=== PATIENT | female | born 1975 | race Caucasian/White ===

== ENCOUNTER 2018-07-04 08:35 | Outpatient (CLI) | payer BC | END 2018-07-04 08:36 | disposition home or self-care (01) | LOC: BICMAMMO 08:35 | PROVIDERS: ATTEND Family Medicine | DX: R92.8 Other abnormal and inconclusive findings on diagnostic imaging of breast (principal); Z80.3 Family history of malignant neoplasm of breast | CPT/HCPCS: 77066; G0279 ==

== ENCOUNTER 2019-06-13 13:05 | Outpatient (CLI) | payer BC ==
--- NOTE | 2019-06-13 13:59 | RAD ---
LUMBAR SPINE TWO VIEWS: HISTORY: Low back pain for 10 years, greater over the past 10 years. Right leg radiculopathy and foot pain. COMPARISON: None. FINDINGS: There are five [id number] lumbar type vertebral bodies. The vertebral body heights are within no rmal limits. No fracture is visualized. There is trace anterolisthesis of L4 on L5. Facet degenerativ e changes are seen in the lower lumbar spine. No other findings. IMPRESSION: Suggestion of trace anterolisthesis of L4 on L5. No fracture is seen. POS: OFF
--- NOTE | 2019-06-13 14:00 | RAD ---
CERVICAL SPINE THREE VIEWS: 06/13/2019 HISTORY: Headaches and arthritis/neck pain for 10 years. COMPARISON: None. FINDINGS: There is disk space narrowing with degenerative endplate change and anterior osteophyte formation at C5-C6 and C6-C7. There is mild anterolisthesis at C4-C5, measuring approximately 2 mm. No prevertebra l soft tissue swelling. Open mouth odontoid view demonstrates a normal appearing dens and C1-2 articu lation. Frontal imaging demonstrates significant mid cervical spine facet and uncovertebral osteophyt e formation, right greater than left, most prominent at C4-C5 and C5-C6. IMPRESSION: Multilevel cervical spine degenerative change. POS: LYNDSEY
== END 2019-06-13 13:06 | disposition home or self-care (01) ==
LOC: BICRAD 13:05
PROVIDERS: ATTEND Orthopaedic Surgery
DX: M54.5 Low back pain (principal); M54.2 Cervicalgia; M47.812 Spondylosis without myelopathy or radiculopathy, cervical region
CPT/HCPCS: 72040; 72100

== ENCOUNTER 2019-10-14 08:48 | Outpatient (CLI) | payer BC ==
--- NOTE | 2019-10-14 09:10 | ULT ---
Sonogram right upper quadrant HISTORY: Right upper quadrant pain. FINDINGS: Gallbladder has normal appearance. No stones visible. Common duct is 0.5 cm. Liver mildly echogenic without focal mass or intrahepatic biliary dilatation. No free fluid. IMPRESSION : No evidence of gallstones or biliary obstruction. Mild hepato-steatosis.
== END 2019-10-14 08:49 | disposition home or self-care (01) ==
LOC: BICULT 08:48
PROVIDERS: ATTEND Family Medicine
DX: R10.11 Right upper quadrant pain (principal); K76.0 Fatty (change of) liver, not elsewhere classified
CPT/HCPCS: 76705

== ENCOUNTER 2019-11-01 08:12 | Outpatient (CLI) | payer BC ==
--- NOTE | 2019-11-01 12:31 | NM ---
Radionucleotide hepatobiliary scan and gallbladder ejection fraction. HISTORY: Right upper quadrant pain. FINDINGS: Early images show physiologic uptake of radiotracer throughout the hepatic parenchyma. Gall bladder is visible immediately. Small bowel at 9 minutes. After administration of fatty meal, there is excretion of contrast from the gallbladder to the small bowel. Gallbladder ejection fraction calculated at 42%. IMPRESSION : Biliary system is patent. Technically, gallbladder ejection fraction is in the indeterminate range. Subjective evaluation and e martine gallbladder visualization, however, argue against significant gallbladder dyskinesis.
== END 2019-11-01 08:13 | disposition home or self-care (01) ==
LOC: NM 08:12
PROVIDERS: ATTEND Family Medicine
DX: R10.11 Right upper quadrant pain (principal)
CPT/HCPCS: 78227; A9537

== ENCOUNTER 2020-06-04 08:39 | Inpatient (IN) | payer BC ==
[2020-06-04] MEDS ORDERED: Acetaminophen 500 MG TAB ONE (08:58)
[2020-06-04] MEDS ORDERED: Dexamethasone 10 MG/ML VIAL ONE (09:06)
[2020-06-04 09:19] LABS: White Blood Cell (WBC) Count 5.1 thou/uL (4.8-10.8)
[2020-06-04 09:39] LABS: Band 29 % (5-11); Hemoglobin 12.2 g/dL (12.0-16.0); Lymphocytes 9 % (21-51); MDiff Complete? YES; Mean Corpuscular HGB CONC 35.2 g/dL (32.0-36.0); Mean Corpuscular Hemoglobin 31.6 pg (27.0-31.0); Mean Corpuscular Volume 89.9 fL (78.0-98.0); Mean Platelet Volume 6.9 fL (7.4-10.4); Metamyelocyte 4 % (0-0); Monocytes 5 % (0-10); Neutrophil 53 % (42-75); Platelet Count 180 thou/uL (130-400); RBC Distribution Width 11.4 % (11.5-14.5); RBC Morphology Normal; Red Blood Cell (RBC) Count 3.85 mill/uL (4.20-5.40)
[2020-06-04 09:43] LABS: ALT (SGPT) 17 U/L (8-55); AST (SGOT) 24 U/L (5-34); Albumin 4.6 g/dL (3.5-5.0); Alkaline Phosphatase 60 U/L (40-110); Anion Gap 18 mmol/L (10-20); BUN (Urea Nitrogen) 6 mg/dL (7.0-18.7); Bilirubin, Total 0.8 mg/dL (0.2-1.2); CK (CPK) 190 U/L (29-168); Calc. Creatinine Clearance 0 mL/min (70-130); Calcium 9.7 mg/dL (7.8-10.44); Carbon Dioxide 24 mmol/L (22-29); Chloride 87 mmol/L (98-107); Estimated GFR-MDRD 75; Globulin 3.1 g/dL (2.4-3.5); Glucose 98 mg/dL (70-105); Lipase 19 U/L (8-78); Potassium 3.3 mmol/L (3.5-5.1); Protein, Total 7.7 g/dL (6.0-8.3); Sodium 126 mmol/L (136-145)
[2020-06-04] MEDS ORDERED: Azithromycin 500 MG VIAL ONE (09:53)
--- NOTE | 2020-06-04 10:21 | RAD ---
PORTABLE CHEST 1 VIEW: DATE: 06/04/2020. TIME: 9:18 AM. HISTORY: Cough, shortness of breath, fever, chills, nausea, headache. FINDINGS: The heart size is normal. There are patchy opacities in the left mid and lower lung zones. NO pneum othoraces or pleural effusions are seen. IMPRESSION: Findings suspicious for pneumonia. POS: JYOTHIA
[2020-06-04 10:38] LABS: Bilirubin Negative (Negative); Blood, Urine Negative (Negative); Clarity Clear (Clear); Glucose, Urine (Dipstick) Normal (Negative); Ketone, Urine Negative (Negative); Leukocyte Negative Leu/uL (Negative); Nitrite Negative (Negative); Protein, Urine (Dipstick) Negative (Neg-Trace); Specific Gravity, Urine 1.015 (1.002-1.036); Urobilinogen Normal mg/dL (Less than 2); pH, Urine 6.5 (5.0-9.0)
--- NOTE | 2020-06-04 10:53 | CT ---
CT PULMONARY ANGIOGRAM WITH IV CONTRAST AND 3D POST PROCESSING: HISTORY: Cough, shortness of breath, fever, chills, nausea, headache. FINDINGS: There is good contrast opacification with pulmonary arterial vasculature without filling defects to s uggest pulmonary embolism. The thoracic aorta is well opacified without aneurysm or dissection. No pleural or pericardial effusions are seen. Patchy multifocal opacities are seen bilaterally, most pr ominent in the left upper lobe. A small hiatal hernia is present. There are degenerative changes in the spine. Upper abdominal tomograms demonstrate calcified granulomas in the spleen. IMPRESSION: 1. No CT evidence of pulmonary embolism. 2. Multifocal pneumonia suspicious for COVID-19. POS: JYOTHIA
[2020-06-04] MEDS ORDERED: Iopamidol-370 76% 500 ML 1 ML ONE (11:33)
[2020-06-04] MEDS ORDERED: Enoxaparin Sodium 100 MG/ML SYRINGE ONE (11:47)
[2020-06-04 12:20] LABS: Magnesium 1.4 mg/dL (1.6-2.6); Phosphorus 2.6 mg/dL (2.3-4.7)
[2020-06-04 12:22] LABS: SARS-CoV-2 NAA Rapid Test Not Detected (NotDetected)
[2020-06-04 13:30] LABS: Troponin I Less than 0.010 ng/mL (< 0.028)
[2020-06-04] MEDS ORDERED: Magnesium Sulfate 4 GM in Sodium Chloride 0.9% 250 ML 250 ML IVPB SCH (13:30)
--- NOTE | 2020-06-04 13:51 | PDOC.HHP ---
Hospitalist HPI - History of Present Illness Shortness of breath with generalized weakness History of Present Illness: Patient is 45-year-old female with hypertension, obesity and chronic alcohol use presented to the emergency room with generalized weakness along with shortness of breath and fever of 2 to 3 days duration. 2 weeks ago patient had transient flulike symptoms that was self-limited. Over the last 2 to 3 days patient developed gradual worsening fever along with chills, shortness of breath and generalized weakness. She did not record her temperature. She also had intermittent chills She was short of breath on minimal exertion. She does not have a pulse oximeter at home. She had intr actable cough without significant production. She also had mild generalized headache without any photophobia, phonophobia or focal deficit. In the emergency room her initial vital signs showed temperature 103, respiration of 22, pulse rate of 128 with a blood pressure of 118/73. O2 saturation was 96% on room air. CT scan of the chest was negative for pulmonary embolism. It showed multifocal pneumonia suspicious for COVID-19. She received Levaquin, azithromycin, Decadron and 1 mg/kg of Lovenox in the emergency room PAST MEDICAL HISTORY: Hypothyroidism, bipolar disorder, anxiety, irritable bowel syndrome, hypertension, obesity PAST SURGICAL HISTORY: Sinus surgery in 1994, hysterectomy in 2008, hernia repair in 2010, colonoscopy in 2007, perinealplasty in 2000 ALLERGIES: Latex, penicillin, codeine SOCIAL HISTORY: Denies any smoking. Lives close to her family. Drinks 6 cans 16 oz beer at night FAMILY HISTORY: Hypertension and heart disease in the father. Mother with breast cancer. Hospitalist ROS - Review of Systems Cardiovascular: denies: chest pain, palpitations, orthopnea, paroxysmal noc. dyspnea, edema, light headedness, other Gastrointestinal: denies: nausea, vomiting, abdominal pain, diarrhea, constipation, melena, hematochezia, other All other systems reviewed; all pertinent +/- noted in HPI/Subj - Medication Medications: To be verified Medications: Taking Olmesartan Medoxomil 20 mg Tablet 1 tablet Orally Once a day, Taking Levothyroxine Sodium 112 MCG Capsule 1 tablet on an empty stomach in the morning Orally Once a day, Taking Depakote ER(Divalproex Sodium ER) 250 MG Unspecified 2 tablet ORALLY EVERY 12 HOURS, Taking Metoprolol- Hydrochlorothiazide 50-25 MG Tablet 2 TABLETS WITH A MEAL ONCE A DAY ORALLY 30 Orally Once a day, Unknown Sertraline HCl 50MG Tablet 3 TABS orally qd, Unknown Vitamin D3 5000 IU tablet 2 tabs orally once a day, Unknown Magnesium 400mg 1 tablet bid, Unknown Multi +DHA 27-0.8-228 MG Capsule Orally , Unknown Vitamin C 2000 as directed daily, Unknown Calcium 500 mg 1 tab tid, Unknown HydrOXYzine HCl 25 MG Tablet 1 TABLET NEEDED TID PRN ITCHING ORALLY 30 DAY(S) Orally every 8 hrs, Notes: prn for anxiety, Unknown Diltiazem HCl ER 180 MG Capsule Extended Release 24 Hour 1 capsule on an empty stomach in the morning Orally twice a day, Unknown Quetiapine Fumarate 200 MG Tablet TAKE 1 TABLET BY MOUTH EVERY NIGHT AT BEDTIME , Unknown Azelastine HCl 0.1 % Solution 1 PUFF IN EACH NOSTRIL TWICE A DAY NASALLY 1 MONTH , Medication List reviewed and reconciled with the patient - Exam General Appearance: ill appearing Eye: PERRL, anicteric sclera ENT: normocephalic atraumatic, no oropharyngeal lesions Neck: supple, no JVD, no thyromegaly, no lymphadenopathy Heart: RRR, no gallops, no rubs, normal peripheral pulses Respiratory: no wheezes, rales, rhonchi, tachypneic Gastrointestinal: soft, normal bowel sounds, no guarding, no rigidity Extremities: no cyanosis, no clubbing, no edema Skin: normal turgor Neurological: normal sensation to touch, no focal deficits Musculoskeletal: normal tone, generalized weakness Psychiatric: normal affect, A&O x 3 Hospitalist Results - Labs Result Diagrams: 06/05/20 05:39 06/05/20 05:39 Lab results: WBC 5.1 thou/uL (4.8-10.8) 06/04/20 09:10 Hgb 12.2 g/dL (12.0-16.0) 06/04/20 09:10 Hct 34.6 % (36.0-47.0) L 06/04/20 09:10 MCV 89.9 fL (78.0-98.0) 06/04/20 09:10 Plt Count 180 thou/uL (130-400) 06/04/20 09:10 Band Neuts % (Manual) 29 % (5-11) H 06/04/20 09:10 Sodium 126 mmol/L (136-145) L 06/04/20 09:10 Potassium 3.3 mmol/L (3.5-5.1) L 06/04/20 09:10 Chloride 87 mmol/L (98-107) L 06/04/20 09:10 Carbon Dioxide 24 mmol/L (22-29) 06/04/20 09:10 BUN 6 mg/dL (7.0-18.7) L 06/04/20 09:10 Creatinine 0.82 mg/dL (0.6-1.1) 06/04/20 09:10 Glucose 98 mg/dL (70-105) 06/04/20 09:10 Calcium 9.7 mg/dL (7.8-10.44) 06/04/20 09:10 Total Bilirubin 0.8 mg/dL (0.2-1.2) 06/04/20 09:10 AST 24 U/L (5-34) 06/04/20 09:10 ALT 17 U/L (8-55) 06/04/20 09:10 Alkaline Phosphatase 60 U/L (40-110) 06/04/20 09:10 Creatine Kinase 190 U/L (29-168) H 06/04/20 09:10 Troponin I Less than 0.010 ng/mL (< 0.028) 06/04/20 12:37 C-Reactive Protein 2.94 mg/dL (= or < 0.5) H 06/04/20 09:10 B-Natriuretic Peptide 36.2 pg/mL (0-100) 06/04/20 09:10 Serum Total Protein 7.7 g/dL (6.0-8.3) 06/04/20 09:10 Albumin 4.6 g/dL (3.5-5.0) 06/04/20 09:10 Lipase 19 U/L (8-78) 06/04/20 09:10 Urine Ketones Negative mg/dL (Negative) 06/04/20 10:22 Urine Blood Negative (Negative) 06/04/20 10:22 Urine Nitrite Negative (Negative) 06/04/20 10:22 Ur Leukocyte Esterase Negative Karla/uL (Negative) 06/04/20 10:22 Abnormal Lab Results - Last 48 hrs 06/04/20 09:10: Sodium 126 L, Potassium 3.3 L, Chloride 87 L, BUN 6 L, Creatine Kinase 190 H 06/04/20 09:10: RBC 3.85 L, Hct 34.6 L, MCH 31.6 H, RDW 11.4 L, MPV 6.9 L, Band Neuts % (Manual) 29 H, Lymphocytes % (Manual) 9 L, Metamyelocytes % (Man) 4 H 06/04/20 09:10: D-Dimer Less than 0.27 L 06/04/20 09:10: Serum Osmolality 262 L 06/04/20 09:10: Magnesium 1.4 L 06/04/20 09:10: C-Reactive Protein 2.94 H - EKG Interpretation EKG: sinus rhythm with nonspecific ST-T wave changes-reviewed by me - Radiology Interpretation CT scan - chest Status: image reviewed by me Additional Comment: FINDINGS: There is good contrast opacification with pulmonary arterial vasculature without filling defects to s uggest pulmonary embolism. The thoracic aorta is well opacified without aneurysm or dissection. No pleural or pericardial effusions are seen. Patchy multifocal opacities are seen bilaterally, most pr ominent in the left upper lobe. A small hiatal hernia is present. There are degenerative changes in the spine. Upper abdominal tomograms demonstrate calcified granulomas in the spleen. IMPRESSION: 1. No CT evidence of pulmonary embolism. 2. Multifocal pneumonia suspicious for COVID-19. Hospitalist H&P A/P - Plan Plan: Acute hypoxic respiratory failure due to suspected COVID-19 pneumonia. Bacterial pneumonia is a possibility. Hypertension Hypothyroidism Abnormal EKG Hypotonic hyponatremia Hypokalemia Hypomagnesemia Chronic alcoholism Obesity with a BMI 36 Suspected obstructive sleep apnea Anxiety/bipolar disorder Plan: Patient is currently admitted to medical floor. Rapid COVID-19 test came back negative. Will recheck COVID-19 testing. Patient received Decadron in the emergency room. COVID-19 isolation. Albuterol inhaler every 4 hours as needed. Add mucolytic's. Empiric Levaquin. Replace electrolytes. Counseled on alcohol cessation. Alcohol withdrawal protocol. Gentle hydration for hyponatremia. Recheck labs in a.m. Check respiratory viral panel. Resume home medications once verified. Recheck inflammatory markers in a.m. Echocardiogram and stress test as outpatient due to active Covid infection.
[2020-06-04] MEDS ORDERED: Lorazepam 0.5 MG TAB PO PRN (14:03)
[2020-06-04] MEDS ORDERED: Ondansetron ODT 4 MG TAB PO PRN (14:04)
[2020-06-04] MEDS ORDERED: Acetaminophen 325 MG TAB PO PRN (14:04)
[2020-06-04] MEDS ORDERED: guaiFENesin ER 600 MG TAB PO PRN (14:04)
[2020-06-04] MEDS ORDERED: Bisacodyl 10 MG SUPP PR PRN (14:04)
[2020-06-04] MEDS ORDERED: Calcium Carbonate 500 MG ChewTAB PO PRN (14:04)
[2020-06-04] MEDS ORDERED: Ondansetron PF 4 MG/2 ML Vial IVP PRN (14:04)
[2020-06-04] MEDS ORDERED: Senokot S 8.6-50 MG TAB PO PRN (14:04)
[2020-06-04] MEDS ORDERED: Albuterol 200 PUFF (6.7GM INHALER) INH PRN (14:11)
[2020-06-04 14:22] VITALS: BMI 35.9
[2020-06-04] MEDS: NS 0.9% w/ 20 MEQ KCL 1,000 ML/1,000 ML BAG IV SCH (19:00)
[2020-06-04] MEDS: Albuterol 200 PUFF (6.7GM INHALER) INH SCH ×3 (19:25→20:54)
[2020-06-04 20:10] LABS: SARS-CoV-2 MS2 Positive; SARS-CoV-2 N Gene Negative; SARS-CoV-2 S Gene Negative; SARS-CoV-2 by NAA Not Detected (NotDetected); SARS-CoV-2 orf1ab Negative
[2020-06-04] MEDS: Zinc Sulfate 220 MG CAP PO SCH (20:54)
[2020-06-04] MEDS: Famotidine 20 MG TAB PO SCH (20:54)
[2020-06-04] MEDS: Potassium Chloride 20 MEQ TAB PO SCH (20:54)
[2020-06-04] MEDS: BEER 1 CAN PO SCH (21:00)
[2020-06-04] MEDS ORDERED: Enoxaparin Sodium 40 MG/0.4 ML SYRINGE SC SCH (21:00)
[2020-06-05] MEDS: Albuterol 200 PUFF (6.7GM INHALER) INH SCH ×6 (04:35→23:26)
[2020-06-05 06:29] LABS: #Lymphocytes 0.5 thou/uL (1.20-3.40); #Monocytes 0.7 thou/uL (0.11-0.59); #Neutrophils 11.5 thou/uL (1.40-6.50); %Eosinophils 0.1 % (0.0-10.0); %Monocytes 5.6 % (0.0-10.0); %Neutrophils 90.3 % (42.0-75.0); Mean Corpuscular HGB CONC 33.6 g/dL (32.0-36.0); Mean Corpuscular Hemoglobin 31.3 pg (27.0-31.0); Mean Corpuscular Volume 93.3 fL (78.0-98.0); Mean Platelet Volume 7.3 fL (7.4-10.4); Platelet Count 199 thou/uL (130-400); RBC Distribution Width 11.6 % (11.5-14.5); White Blood Cell (WBC) Count 12.7 thou/uL (4.8-10.8)
[2020-06-05 06:36] LABS: ALT (SGPT) 12 U/L (8-55); AST (SGOT) 18 U/L (5-34); Albumin 4.1 g/dL (3.5-5.0); Alkaline Phosphatase 41 U/L (40-110); Anion Gap 14 mmol/L (10-20); BUN (Urea Nitrogen) 8 mg/dL (7.0-18.7); Bilirubin, Total 0.5 mg/dL (0.2-1.2); Calc. Creatinine Clearance 143 mL/min (70-130); Calcium 8.8 mg/dL (7.8-10.44); Carbon Dioxide 26 mmol/L (22-29); Chloride 92 mmol/L (98-107); Estimated GFR-MDRD 84; Globulin 2.6 g/dL (2.4-3.5); Glucose 130 mg/dL (70-105); Magnesium 2.5 mg/dL (1.6-2.6); Potassium 3.5 mmol/L (3.5-5.1); Protein, Total 6.7 g/dL (6.0-8.3); Sodium 128 mmol/L (136-145)
[2020-06-05] MEDS ORDERED: Enoxaparin Sodium 40 MG/0.4 ML SYRINGE SC SCH (09:00)
[2020-06-05] MEDS ORDERED: Diabetic Tussin 200 MG/10 ML UDCUP PO PRN (09:20)
[2020-06-05] MEDS ORDERED: Metoprolol Tartrate 25 MG TAB PO SCH (09:30)
[2020-06-05] MEDS ORDERED: Hydrochlorothiazide 25 MG TAB PO SCH (09:30)
[2020-06-05] MEDS: Ascorbic Acid 500 mg Chewable Tablet PO SCH (09:35)
[2020-06-05] MEDS: Potassium Chloride 20 MEQ TAB PO SCH (09:36)
[2020-06-05] MEDS: Saccharomyces boulardii 250 MG CAP PO SCH (09:36)
[2020-06-05] MEDS: Folic Acid 1 MG TAB PO SCH (09:36)
[2020-06-05] MEDS: Cyanocobalamin (Vitamin B-12) 1,000 MCG TAB PO SCH (09:37)
[2020-06-05] MEDS: Famotidine 20 MG TAB PO SCH ×2 (09:37→21:12)
[2020-06-05] MEDS: Multivit, Therapeutic 1 TAB PO SCH (09:37)
[2020-06-05] MEDS: Thiamine 100 MG TAB PO SCH (09:38)
[2020-06-05] MEDS: NS 0.9% w/ 20 MEQ KCL 1,000 ML/1,000 ML BAG IV SCH ×2 (09:39→19:16)
--- NOTE | 2020-06-05 16:07 | CON ---
DATE OF CONSULTATION: 06/05/2020 REASON FOR CONSULTATION: Pneumonia. HISTORY OF PRESENT ILLNESS: A 45-year-old, who has a history of obesity, hypertension, irritable bowel syndrome, and bipolar disorder, who was feeling well until Monday, and the next day, she all of a sudden developed a temperature of 103, general malaise, and cough, mostly dry. 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 Lives by herself in town. She had some headaches, some sore throat. No dental pain. No back pain. No abdominal pain or diarrhea. No genitourinary symptoms. No other joint symptoms. No neurological symptoms. PAST MEDICAL HISTORY: Obesity, hypertension, irritable bowel syndrome, bipolar disorder. SOCIAL HISTORY: Works as an dining room captain. Never smoker. Single. ALLERGIES: LATEX, PENICILLIN. MEDICATIONS: 1. Diltiazem. 2. Zoloft. 3. Metoprolol. 4. Olmesartan. 5. Hydroxyzine. 6. Ondansetron. 7. Azelastine. 8. Here, the patient is also receiving levofloxacin 750 daily. Feels a little better right now. PHYSICAL EXAMINATION: VITAL SIGNS: She has been afebrile, maybe T-max 99.5 on admission. Saturating 99 on room air, pulse 81. GENERAL: She appears very comfortable at rest. SKIN: No skin lesions. Peripheral IV access. Voiding in the toilet. No lymphadenopathy. HEENT: Normal. LUNGS: Clear. HEART: S1 and S2, regular rate. No jugular vein distention. ABDOMEN: Soft, not distended or tender. No ascites. No bladder distention. EXTREMITIES: No joint inflammatory activity. No edema. NEUROLOGIC: Nonfocal. LABORATORY DATA: White cell count is at 12.7, hemoglobin 11, platelets 199. She had 29% bands on arrival, now she has 90% neutrophils. D-dimer less than 0.27. Sodium 128, creatinine 0.74. Liver profile normal. CRP 13. Urinalysis normal. SARS-CoV-2 PCR was not detected on . A CT of chest that was done, which showed multifocal pneumonia, more prominent in the left upper lobe. ASSESSMENT: Obesity and pneumonia of acute onset with more focal areas of involvement in the left lung, and bandemia. DISCUSSION: The clinical presentation is more typical of a bacterial pneumonia. She has very focal involvement in left lung and does not have the hypoxemia typically noticeable with COVID. She does not desaturate upon exertion, so we will go ahead and submit antibodies. I think, while she is here, we will have to keep her in isolation because we cannot be totally sure that she does not have SARS-CoV-2, and hopefully, discharge planning soon on oral levofloxacin, and then, at home she should stay in quarantine for another 5 days or so and then return to her normal activities. I do not predict any complications in her hospital stay. Job ID: [id number]
[2020-06-05 16:36] LABS: Legionella Urinary Ag Negative (Negative); Strep pneumo Urine Ag NEGATIVE (NEGATIVE)
--- NOTE | 2020-06-05 16:59 | PDOC.HOSPP ---
- Subjective Encounter Date: 06/05/20 Encounter Time: 09:45 Subjective: Patient seen and examined for sepsis due to pneumonia. Afebrile. Feels generally weak and fatigued. Shortness of breath improving. Has intractable cough. Denies any nausea, vomiting or diarrhea. - Objective Vital Signs & Weight: Vital Signs (12 hours) Temp Pulse Resp BP Pulse Ox 06/05/20 16:00 98.8 F 79 18 147/88 H 100 06/05/20 08:00 98.0 F 84 18 128/81 98 Weight Weight 209 lb 9.6 oz I&O: 06/04/20 06/05/20 06/06/20 06:59 06:59 06:59 Intake Total 1600 Balance 1600 Result Diagrams: 06/05/20 05:39 06/05/20 05:39 Additional Labs: Abnormal Lab Results - Last 48 hrs 06/04/20 09:10: Sodium 126 L, Potassium 3.3 L, Chloride 87 L, BUN 6 L, Creatine Kinase 190 H 06/04/20 09:10: RBC 3.85 L, Hct 34.6 L, MCH 31.6 H, RDW 11.4 L, MPV 6.9 L, Band Neuts % (Manual) 29 H, Lymphocytes % (Manual) 9 L, Metamyelocytes % (Man) 4 H 06/04/20 09:10: D-Dimer Less than 0.27 L 06/04/20 09:10: Serum Osmolality 262 L 06/04/20 09:10: Magnesium 1.4 L 06/04/20 09:10: C-Reactive Protein 2.94 H 06/05/20 05:39: Sodium 128 L, Chloride 92 L 06/05/20 05:39: WBC 12.7 H, RBC 3.50 L, Hgb 11.0 L, Hct 32.7 L, MCH 31.3 H, MPV 7.3 L, Neutrophils % 90.3 H, Lymphocytes % 4.0 L, Neutrophils # 11.5 H, Lymphocytes # 0.5 L, Monocytes # 0.7 H 06/05/20 05:39: C-Reactive Protein 13.09 H 06/05/20 05:39: D-Dimer Less than 0.27 L Microbiology - Entire Visit 06/04/20 15:50 Nasopharyngeal swab Respiratory Virus Panel (PCR) - Final Radiology Reviewed by me: Yes (CT chestpneumonia) Hospitalist ROS - Review of Systems Constitutional: reports: weakness, malaise. denies: fever, chills, sweats, other Gastrointestinal: denies: nausea, vomiting, abdominal pain, diarrhea, constipation, melena, hematochezia, other All other systems reviewed; all pertinent +/- noted in HPI/Subj - Medication Medications: Active Medications Generic Name Dose Route Start Last Admin Trade Name Freq PRN Reason Stop Dose Admin Albuterol Sulfate 2 puff 06/04/20 14:30 06/05/20 15:24 Albuterol 200 Puff (6.7gm Inhaler) INH 2 puff [id number] ARA Administration Ascorbic Acid 1,000 mg 06/05/20 09:00 06/05/20 09:35 Ascorbic Acid 500 Mg Chewable Tablet PO 1,000 mg DAILY ARA Administration Beer 2 each 06/04/20 21:00 06/04/20 21:00 Beer 1 Can PO 2 each HS ARA Administration Cyanocobalamin 1,000 mcg 06/05/20 09:00 06/05/20 09:37 Cyanocobalamin (Vitamin B-12) 1,000 Mcg Tab PO 1,000 mcg DAILY ARA Administration Divalproex Sodium 500 mg 06/05/20 09:00 06/05/20 09:38 Divalproex Sodium Er 500 Mg Tablet PO 500 mg BID ARA Administration Famotidine 20 mg 06/04/20 21:00 06/05/20 09:37 Famotidine 20 Mg Tab PO 20 mg BID ARA Administration Folic Acid 1 mg 06/05/20 09:00 06/05/20 09:36 Folic Acid 1 Mg Tab PO 1 mg DAILY ARA Administration Guaifenesin 600 mg 06/04/20 14:04 06/05/20 09:35 Guaifenesin Er 600 Mg Tab PO 600 mg Q12H PRN Administration Cough Levofloxacin 750 mg/ Device 150 mls @ 100 mls/hr 06/05/20 10:00 06/05/20 09:39 IVPB 150 mls 1000 ARA Administration Potassium Chloride/Sodium Chloride 1,000 ml in 1,000 mls @ 50 mls/hr 06/05/20 09:15 06/05/20 09:39 Ns 0.9% W/ 20 Meq Kcl IV 1,000 mls .Q20H ARA Administration Multivitamins 1 tab 06/05/20 09:00 06/05/20 09:37 Multivit, Therapeutic 1 Tab PO 1 tab DAILY ARA Administration Saccharomyces Boulardii 250 mg 06/05/20 09:00 06/05/20 09:36 Saccharomyces Boulardii 250 Mg Cap PO 250 mg DAILY ARA Administration Thiamine HCl 100 mg 06/05/20 09:00 06/05/20 09:38 Thiamine 100 Mg Tab PO 100 mg DAILY ARA Administration Zinc Sulfate 220 mg 06/04/20 21:00 06/04/20 20:54 Zinc Sulfate 220 Mg Cap PO 220 mg HS ARA Administration - Exam General Appearance: ill appearing Neck: supple, no JVD Heart: RRR, no gallops, no rubs, normal peripheral pulses Respiratory: CTAB, no wheezes, rales, rhonchi Gastrointestinal: soft, non-tender, normal bowel sounds, no rigidity Extremities: no cyanosis, no clubbing Neurological: no new deficit Musculoskeletal: generalized weakness Psychiatric: normal affect, A&O x 3 Hosp A/P - Plan DVT proph w/lovenox, DVT proph w/SCDs Acute hypoxic respiratory failure due to Bacterial pneumonia ?Gram-negative Hypertension Hypothyroidism Abnormal EKG Hypotonic hyponatremia Hypokalemia Hypomagnesemia Chronic alcoholism Obesity with a BMI 36 Suspected obstructive sleep apnea Anxiety/bipolar disorder Plan: Add IV Vancomycin. Monitor vancomycin level. Cont Levaquin. Reduce IV fluid to 50 mL/h. Continue COVID-19 isolation per infectious disease. Hyponatremia improving. HCTZ on hold. Restart metoprolol at low-dose. Add echocardiogram since COVID-19 testing is negative. Will check COVID-19 antibodies. Will check urine antigen for strep pneumonia and Legionella. Replace electrolytes. Continue alcohol withdrawal protocol. Counseled on alcohol cessation. Sleep study as outpatient. Recheck labs in a.m. Continue other medications as above. Resume other home medications including levothyroxine and Zoloft.
[2020-06-05] MEDS ORDERED: Potassium Chloride 20 MEQ TAB PO SCH (17:00)
[2020-06-05] MEDS: guaiFENesin ER 600 MG TAB PO SCH (21:11)
[2020-06-05] MEDS: Metoprolol Tartrate 25 MG TAB PO SCH (21:11)
[2020-06-05] MEDS: Azelastine 137 MCG/Spray 30 ML NS SCH (21:11)
[2020-06-05] MEDS: Zinc Sulfate 220 MG CAP PO SCH (21:12)
[2020-06-05] MEDS: BEER 1 CAN PO SCH (21:16)
[2020-06-05] MEDS: Vancomycin 1.5 GRAM/300 ML BAG 1.5 GM in Premix Bag 1 BAG IVPB SCH (23:27)
[2020-06-06] MEDS: Albuterol 200 PUFF (6.7GM INHALER) INH SCH ×6 (05:00→22:05)
[2020-06-06] MEDS: Levothyroxine Sodium 112 MCG TAB PO SCH (05:35)
[2020-06-06] MEDS: NS 0.9% w/ 20 MEQ KCL 1,000 ML/1,000 ML BAG IV SCH (05:46)
[2020-06-06 06:24] LABS: #Eosinphils 0.1 thou/uL (0.0-0.7); #Lymphocytes 1.6 thou/uL (1.20-3.40); #Monocytes 0.8 thou/uL (0.11-0.59); #Neutrophils 9.7 thou/uL (1.40-6.50); %Basophils 0.2 % (0.0-1.0); %Eosinophils 0.5 % (0.0-10.0); %Monocytes 6.6 % (0.0-10.0); %Neutrophils 79.7 % (42.0-75.0); Hemoglobin 10.1 g/dL (12.0-16.0); Mean Corpuscular HGB CONC 34.8 g/dL (32.0-36.0); Mean Corpuscular Hemoglobin 32.6 pg (27.0-31.0); Mean Corpuscular Volume 93.8 fL (78.0-98.0); Mean Platelet Volume 7.1 fL (7.4-10.4); Platelet Count 205 thou/uL (130-400); RBC Distribution Width 11.5 % (11.5-14.5); White Blood Cell (WBC) Count 12.1 thou/uL (4.8-10.8)
[2020-06-06 06:49] LABS: ALT (SGPT) 11 U/L (8-55); AST (SGOT) 19 U/L (5-34); Albumin 3.8 g/dL (3.5-5.0); Alkaline Phosphatase 38 U/L (40-110); Anion Gap 13 mmol/L (10-20); BUN (Urea Nitrogen) 8 mg/dL (7.0-18.7); Bilirubin, Total 0.4 mg/dL (0.2-1.2); Calc. Creatinine Clearance 132 mL/min (70-130); Calcium 8.4 mg/dL (7.8-10.44); Carbon Dioxide 25 mmol/L (22-29); Chloride 92 mmol/L (98-107); Estimated GFR-MDRD 77; Globulin 2.5 g/dL (2.4-3.5); Glucose 97 mg/dL (70-105); Magnesium 2.1 mg/dL (1.6-2.6); Potassium 3.9 mmol/L (3.5-5.1); Protein, Total 6.3 g/dL (6.0-8.3); Sodium 126 mmol/L (136-145)
[2020-06-06] MEDS: Metoprolol Tartrate 25 MG TAB PO SCH ×2 (08:20→21:01)
[2020-06-06] MEDS: Famotidine 20 MG TAB PO SCH ×2 (08:20→21:01)
[2020-06-06] MEDS: Folic Acid 1 MG TAB PO SCH (08:21)
[2020-06-06] MEDS: Cyanocobalamin (Vitamin B-12) 1,000 MCG TAB PO SCH (08:21)
[2020-06-06] MEDS: Saccharomyces boulardii 250 MG CAP PO SCH (08:22)
[2020-06-06] MEDS: Multivit, Therapeutic 1 TAB PO SCH (08:22)
[2020-06-06] MEDS: guaiFENesin ER 600 MG TAB PO SCH ×2 (08:22→21:01)
[2020-06-06] MEDS: Thiamine 100 MG TAB PO SCH (08:22)
[2020-06-06] MEDS: Azelastine 137 MCG/Spray 30 ML NS SCH ×2 (08:23→21:00)
[2020-06-06] MEDS: Ascorbic Acid 500 mg Chewable Tablet PO SCH (08:29)
[2020-06-06] MEDS: Enoxaparin Sodium 40 MG/0.4 ML SYRINGE SC SCH (08:29)
[2020-06-06] MEDS ORDERED: Hydrochlorothiazide 25 MG TAB PO SCH (09:00)
[2020-06-06] MEDS ORDERED: Polyethylene Glycol 3350 17 GM Packet PO SCH (11:30)
[2020-06-06] MEDS ORDERED: Docusate 100 MG CAP PO SCH (11:30)
[2020-06-06] MEDS: Vancomycin 1.5 GRAM/300 ML BAG 1.5 GM in Premix Bag 1 BAG IVPB SCH (12:26)
[2020-06-06 12:56] LABS: SARS-CoV-2 IgG Ab Non-Reactive (NonReactive); SARS-CoV-2 IgG Index 0.06 S/CO (< 1.40)
--- NOTE | 2020-06-06 13:13 | PDOC.HOSPP ---
- Subjective Encounter Date: 06/06/20 Encounter Time: 12:45 Subjective: Patient seen and examined for sepsis due to pneumonia. Shortness of breath improving. Slept well last night. Still has some dry cough. Constipated. Denies any nausea, vomiting or fever. - Objective Vital Signs & Weight: Vital Signs (12 hours) Temp Pulse Resp BP Pulse Ox 06/06/20 08:01 97.5 F L 82 20 110/69 96 Weight Weight 209 lb 9.6 oz I&O: 06/05/20 06/06/20 06/07/20 06:59 06:59 06:59 Intake Total 1600 Balance 1600 Result Diagrams: 06/06/20 05:47 06/06/20 05:47 Radiology Reviewed by me: Yes (CT chestpneumonia) Hospitalist ROS - Review of Systems Cardiovascular: denies: chest pain, palpitations, orthopnea, paroxysmal noc. dys pnea, edema, light headedness, other Gastrointestinal: denies: nausea, vomiting, abdominal pain, diarrhea, constipation, melena, hematochezia, other - Medication Medications: Active Medications Generic Name Dose Route Start Last Admin Trade Name Freq PRN Reason Stop Dose Admin Albuterol Sulfate 2 puff 06/04/20 14:30 06/06/20 08:23 Albuterol 200 Puff (6.7gm Inhaler) INH 2 puff [id number] ARA Administration Ascorbic Acid 1,000 mg 06/05/20 09:00 06/06/20 08:29 Ascorbic Acid 500 Mg Chewable Tablet PO 1,000 mg DAILY ARA Administration Azelastine HCl 0 ml 06/05/20 21:00 06/06/20 08:23 Azelastine 137 Mcg/[place] 30 Ml NS 1 spr BID ARA Administration Beer 2 each 06/04/20 21:00 06/05/20 21:16 Beer 1 Can PO 2 each HS ARA Administration Cyanocobalamin 1,000 mcg 06/05/20 09:00 06/06/20 08:21 Cyanocobalamin (Vitamin B-12) 1,000 Mcg Tab PO 1,000 mcg DAILY ARA Administration Divalproex Sodium 500 mg 06/05/20 09:00 06/06/20 08:21 Divalproex Sodium Er 500 Mg Tablet PO 500 mg BID ARA Administration Docusate Sodium 100 mg 06/06/20 11:30 06/06/20 12:26 Docusate 100 Mg Cap PO 06/06/20 13:30 100 mg NOW ARA Administration Enoxaparin Sodium 40 mg 06/06/20 09:00 06/06/20 08:29 Enoxaparin Sodium 40 Mg/0.4 Ml Syringe SC 40 mg 0900 ARA Administration Famotidine 20 mg 06/04/20 21:00 06/06/20 08:20 Famotidine 20 Mg Tab PO 20 mg BID ARA Administration Folic Acid 1 mg 06/05/20 09:00 06/06/20 08:21 Folic Acid 1 Mg Tab PO 1 mg DAILY ARA Administration Guaifenesin 600 mg 06/04/20 14:04 06/05/20 09:35 Guaifenesin Er 600 Mg Tab PO 600 mg Q12H PRN Administration Cough Guaifenesin 600 mg 06/05/20 21:00 06/06/20 08:22 Guaifenesin Er 600 Mg Tab PO 600 mg Q12HR ARA Administration Levofloxacin 750 mg/ Device 150 mls @ 100 mls/hr 06/05/20 10:00 06/06/20 08:23 IVPB 150 mls 1000 ARA Administration Vancomycin HCl 1.5 gm/ Device 300 mls @ 200 mls/hr 06/05/20 23:59 06/06/20 12:26 IVPB 300 mls 1200,2359 ARA Administration Levothyroxine Sodium 112 mcg 06/06/20 06:00 06/06/20 05:35 Levothyroxine Sodium 112 Mcg Tab PO 112 mcg 0600 ARA Administration Metoprolol Tartrate 12.5 mg 06/05/20 21:00 06/06/20 08:20 Metoprolol Tartrate 25 Mg Tab PO 12.5 mg BID ARA Administration Multivitamins 1 tab 06/05/20 09:00 06/06/20 08:22 Multivit, Therapeutic 1 Tab PO 1 tab DAILY ARA Administration Polyethylene Glycol 17 gm 06/06/20 11:30 06/06/20 12:26 Polyethylene Glycol 3350 17 Gm Packet PO 06/06/20 13:30 17 gm NOW ARA Administration Quetiapine Fumarate 200 mg 06/05/20 21:00 06/05/20 21:12 Quetiapine Fumarate 200 Mg Tab PO 200 mg HS ARA Administration Saccharomyces Boulardii 250 mg 06/05/20 09:00 06/06/20 08:22 Saccharomyces Boulardii 250 Mg Cap PO 250 mg DAILY ARA Administration Sertraline HCl 150 mg 06/06/20 09:00 06/06/20 08:19 Sertraline Hcl 100 Mg Tab PO 150 mg DAILY ARA Administration Thiamine HCl 100 mg 06/05/20 09:00 06/06/20 08:22 Thiamine 100 Mg Tab PO 100 mg DAILY ARA Administration Zinc Sulfate 220 mg 06/04/20 21:00 06/05/20 21:12 Zinc Sulfate 220 Mg Cap PO 220 mg HS ARA Administration - Exam General Appearance: ill appearing Heart: RRR, no gallops Respiratory: no wheezes, rales, rhonchi Gastrointestinal: soft, non-tender, normal bowel sounds Extremities: no cyanosis, no clubbing Neurological: no new deficit Hosp A/P - Plan DVT proph w/lovenox, DVT proph w/SCDs Acute hypoxic respiratory failure due to Bacterial pneumonia ?Gram-negative Hypertension Hypothyroidism Abnormal EKG Hypotonic hyponatremiaacute on chronic Hypokalemia Hypomagnesemia Chronic alcoholism Obesity with a BMI 36 Suspected obstructive sleep apnea Anxiety/bipolar disorder Plan: Continue IV vancomycin with Levaquin. Monitor vancomycin level. WBC count still slightly elevated. COVID-19 antibody negative. Continue alcohol withdrawal protocol. Sleep study as outpatient. Inflammatory markers improving. Recheck CBC and BMP tomorrow. Continue other medications as above. Discontinue IV fluids
[2020-06-06] MEDS: Zinc Sulfate 220 MG CAP PO SCH (21:01)
[2020-06-06] MEDS: BEER 1 CAN PO SCH (21:01)
[2020-06-06] MEDS: Docusate 100 MG CAP PO SCH (21:02)
[2020-06-06 23:19] LABS: Vancomycin, Trough 29.7 ug/mL
[2020-06-07] MEDS: Albuterol 200 PUFF (6.7GM INHALER) INH SCH ×4 (02:09→15:23)
[2020-06-07] MEDS: Levothyroxine Sodium 112 MCG TAB PO SCH (05:59)
[2020-06-07 07:25] LABS: #Eosinphils 0.1 thou/uL (0.0-0.7); #Lymphocytes 1.3 thou/uL (1.20-3.40); #Monocytes 0.8 thou/uL (0.11-0.59); #Neutrophils 4.9 thou/uL (1.40-6.50); %Basophils 0.3 % (0.0-1.0); %Eosinophils 1.6 % (0.0-10.0); %Lymphocytes 18.6 % (21.0-51.0); %Monocytes 10.7 % (0.0-10.0); %Neutrophils 68.9 % (42.0-75.0); Hemoglobin 10.4 g/dL (12.0-16.0); Mean Corpuscular HGB CONC 35.2 g/dL (32.0-36.0); Mean Corpuscular Hemoglobin 32.1 pg (27.0-31.0); Mean Corpuscular Volume 91.3 fL (78.0-98.0); Mean Platelet Volume 6.7 fL (7.4-10.4); Platelet Count 209 thou/uL (130-400); RBC Distribution Width 11.4 % (11.5-14.5); Red Blood Cell (RBC) Count 3.22 mill/uL (4.20-5.40); White Blood Cell (WBC) Count 7.1 thou/uL (4.8-10.8)
[2020-06-07 07:44] LABS: ALT (SGPT) 12 U/L (8-55); AST (SGOT) 17 U/L (5-34); Albumin 3.7 g/dL (3.5-5.0); Alkaline Phosphatase 39 U/L (40-110); Anion Gap 13 mmol/L (10-20); BUN (Urea Nitrogen) 8 mg/dL (7.0-18.7); Bilirubin, Total 0.4 mg/dL (0.2-1.2); Calc. Creatinine Clearance 132 mL/min (70-130); Calcium 8.9 mg/dL (7.8-10.44); Carbon Dioxide 25 mmol/L (22-29); Chloride 96 mmol/L (98-107); Estimated GFR-MDRD 77; Globulin 2.4 g/dL (2.4-3.5); Glucose 97 mg/dL (70-105); Potassium 4.3 mmol/L (3.5-5.1); Protein, Total 6.1 g/dL (6.0-8.3); Sodium 130 mmol/L (136-145)
[2020-06-07] MEDS: Famotidine 20 MG TAB PO SCH (08:43)
[2020-06-07] MEDS: Azelastine 137 MCG/Spray 30 ML NS SCH (08:43)
[2020-06-07] MEDS: Saccharomyces boulardii 250 MG CAP PO SCH (08:43)
[2020-06-07] MEDS: Enoxaparin Sodium 40 MG/0.4 ML SYRINGE SC SCH (08:43)
[2020-06-07] MEDS: Metoprolol Tartrate 25 MG TAB PO SCH (08:44)
[2020-06-07] MEDS: Thiamine 100 MG TAB PO SCH (08:45)
[2020-06-07] MEDS: Folic Acid 1 MG TAB PO SCH (08:46)
[2020-06-07] MEDS: Ascorbic Acid 500 mg Chewable Tablet PO SCH (08:46)
[2020-06-07] MEDS: Multivit, Therapeutic 1 TAB PO SCH (08:46)
[2020-06-07] MEDS: Docusate 100 MG CAP PO SCH (08:47)
[2020-06-07] MEDS: guaiFENesin ER 600 MG TAB PO SCH (08:47)
[2020-06-07] MEDS: Cyanocobalamin (Vitamin B-12) 1,000 MCG TAB PO SCH (08:47)
[2020-06-07] MEDS ORDERED: Polyethylene Glycol 3350 17 GM Packet PO SCH (09:00)
[2020-06-07] MEDS ORDERED: Vancomycin 1 GM in Premix Bag 1 BAG IVPB SCH (12:00)
--- NOTE | 2020-06-07 15:40 | PDOC.DS.DS ---
Provider - Provider Date of Admission: 06/04/20 11:57 Date of Discharge: 06/07/20 Admitting Provider: Andrey Hong MD Consultations: Infectious Disease Primary Care Physician: OUT OF TOWN Course - Hospital Course Hospital Course: Patient is 45-year-old female with hypertension, chronic alcoholism and obesity presented to the emergency room with worsening shortness of breath along with generalized weakness and fever. She also had associated chills. In the emergency room her temperature was 103 with pulse rate of 128 and blood pressure of 118/73. CT chest showed multifocal pneumonia. Please refer to the history and physical for further details. The patient was admitted to the hospital with a diagnosis of acute hypoxic respiratory failure due to multifocal pneumoniarule out COVID-19. To COVID-19 testing came back negative. Her COVID-19 antibody also came back negative. Respiratory viral panel was negative. Strep pneumoniae urinary antigen was negative. Patient was evaluated by infectious disease Dr. Blunt who felt that patient probably has bacterial pneumonia. She responded well to Levaquin. Her white cell counts have normalized to 7.1 without any left shift on the day of discharge. Patient had hyponatremia with sodium of 126 on admission. Her urine osmolality was 426 with urine sodium of 76 and serum osmolality of 262. Hydrochlorothiazide has been discontinued. She was initially started on IV fluids that was discontinued. Her sodium at discharge is 130. Patient has a long history of alcoholism and was placed on alcohol withdrawal protocol. She was extensively counseled to quit drinking. Final diagnosis: Acute hypoxic respiratory failure due to Bacterial pneumonia ?Gram-negative Hypertension Hypothyroidism Abnormal EKG Hypotonic hyponatremiaacute on chronic Hypokalemia Hypomagnesemia Chronic alcoholism Obesity with a BMI 36 Suspected obstructive sleep apnea Anxiety/bipolar disorder Resuscitation Status: 06/04/20 14:04 Resuscitation Status Routine Resuscitation Status: FULL: Full Resuscitation - Labs Lab Results: 06/07/20 07:02 06/07/20 07:02 Abnormal Lab Results - Last 48 hrs 06/06/20 05:47: Sodium 126 L, Chloride 92 L, Alkaline Phosphatase 38 L 06/06/20 05:47: WBC 12.1 H, RBC 3.10 L, Hgb 10.1 L, Hct 29.1 L, MCH 32.6 H, MPV 7.1 L, Neutrophils % 79.7 H, Lymphocytes % 13.0 L, Neutrophils # 9.7 H, Monocytes # 0.8 H 06/06/20 05:47: C-Reactive Protein 5.60 H 06/07/20 07:02: Sodium 130 L, Chloride 96 L, Alkaline Phosphatase 39 L 06/07/20 07:02: RBC 3.22 L, Hgb 10.4 L, Hct 29.4 L, MCH 32.1 H, RDW 11.4 L, MPV 6.7 L, Lymphocytes % 18.6 L, Monocytes % 10.7 H, Monocytes # 0.8 H Microbiology - Entire Visit 06/04/20 15:50 Nasopharyngeal swab Respiratory Virus Panel (PCR) - Final - Physical Exam Vitals: Vital Signs (12 hours) Temp Pulse Resp BP Pulse Ox 06/07/20 12:00 98.6 F 64 16 137/64 100 06/07/20 08:00 98.7 F 73 18 137/82 95 Weight Weight 209 lb 9.6 oz Physical Exam: The patient was seen and examined on the day of discharge. Plan - Discharge Medications Prescriptions: Folic Acid [Folvite] 1 mg PO DAILY #30 tab Levofloxacin [Levaquin] 750 mg PO DAILY #3 tab Metoprolol Tartrate [Lopressor] 25 mg PO BID #60 tab Thiamine 100 mg PO DAILY #30 tab Home Medications: Medication Instructions Recorded Confirmed Type Azelastine [Azelastine 137 mcg 1 puff EA NARE BID 06/04/20 06/04/20 History (0.1%) Nasal [place]] Divalproex Sodium ER [Depakote ER] 2 tab PO BID 06/04/20 06/04/20 History Levothyroxine Sodium [Tirosint] 1 tab PO QAM 06/04/20 06/04/20 History Olmesartan Medoxomil 1 tab PO DAILY 06/04/20 06/04/20 History QUEtiapine Fumarate [SEROquel] 1 tab PO HS 06/04/20 06/04/20 History Sertraline HCl [Zoloft] 3 tab PO DAILY 06/04/20 06/04/20 History Folic Acid [Folvite] 1 mg PO DAILY #30 tab 06/07/20 Rx Levofloxacin [Levaquin] 750 mg PO DAILY #3 tab 06/07/20 Rx Metoprolol Tartrate [Lopressor] 25 mg PO BID #60 tab 06/07/20 Rx Thiamine 100 mg PO DAILY #30 tab 06/07/20 Rx Allergies: Penicillins Allergy (Intermediate, Verified 06/04/20 15:02) Nausea latex Allergy (Mild, Verified 06/04/20 15:02) Rash - Discharge Instructions Discharge Instructions:: BMP after 1 week - PCP to arrange/follow CXR after 4 weeks - PCP to arrange/follow Quarantine for [address] Blunt - Follow up Plan Referrals: Darrell Blunt MD [Active] - 2-3 Weeks Pako Jennings MD [Active] - 7 Days Disposition: HOME Quality - Care Measures CORE MEASURES:: N/A
[2020-06-07 16:22] VITALS: BP 160/99; TEMP 98.3
--- NOTE | 2020-06-09 04:25 | PQF ---
CLINICAL DOCUMENTATION CLARIFICATION FORM: Dear :Andrey Hong Date / Time: 06/09/2020 0424 Please exercise your independent, professional judgment in responding to the clarification form. Clinical indicators are provided on the bottom of this form for your review Please check appropriate box(es): [ ] Sepsis due to Pneumonia [ x ] Severe sepsis due to Pneumonia with Acute Respiratory Failure [ ] Localized infection without sepsis [ ] Other diagnosis [ ] Unable to determine In addition, please specify: Present on Admission (POA): [ x ] Yes [ ] No [ ] Unable to determine Physician Signature: Date/Time: For continuity of documentation, please document condition throughout progress notes and discharge summary. Thank You. To be completed by CDI/Coding staff for physician review: Present Clinical Indicators - Signs / Symptoms / Labs Results and Location in Medical Record [X] WBC 5.1; 12.7, Neutrophils 90.3, Band 29, plt count 180 Laboratory 06/04 [X] SIRS scoring: Yes, pt did meet criteria ED notes p2 06/04 [X] BP 118/73, Pulse 128, Resp 22, Temp 99.0 Vital signs 06/04 [X] Reports symptoms started with cough, SOB, fever and chills ED notes p2 06/04 [X] Generalized weakness along with SOB and fever H&P p1 06/04 Dr Hong [X] Acute respiratory failure H&P p4 06/04 Dr Hong [X] Pneumonia H&P p4 06/04 Dr Hong [X] Chest Xray: There are patchy opacities in the left mid and lower lung zone Chest Xray 06/04 Present Risk Factors Results and Location in Medical Record [X] HTN H&P p1 06/04 Dr Hong [X] Obesity H&P p1 06/04 Dr Hong [X] Pneumonia H&P p4 06/04 Dr Hong Present Treatments Results and Location in Medical Record [X] IV Azithromax 500 mg SEP 17 [X] IV Levaquin 750 mg SEP 17 [X] IVF NS 1L SEP 17 [X] IV Vancomycin 2gm SEP 17 [X] ID consult Consult Dr Hong 06/04 [facility] Signature: Nova Bellomiguel Phone #: [phone] Date/Time: 06/09/2020 0425 This is a permanent part of the Medical Record [facility]
== END 2020-06-07 16:24 | disposition home or self-care (01) | DRG 871 ==
LOC: ERS 08:39 → T4-B 11:57 → ERS 13:30
PROVIDERS: ADMIT Internal Medicine; ATTEND Internal Medicine
PROC: 8E0ZXY6 Isolation (ICD-10-PCS; principal; 2020-06-04)
DX: A41.50 Gram-negative sepsis, unspecified (principal); J15.6 Pneumonia due to other Gram-negative bacteria; J96.01 Acute respiratory failure with hypoxia; E87.1 Hypo-osmolality and hyponatremia; Z20.828 Contact with and (suspected) exposure to other viral communicable diseases; I10 Essential (primary) hypertension; F41.9 Anxiety disorder, unspecified; F31.9 Bipolar disorder, unspecified; E66.9 Obesity, unspecified; E03.9 Hypothyroidism, unspecified; R94.31 Abnormal electrocardiogram [ECG] [EKG]; E87.6 Hypokalemia; E83.42 Hypomagnesemia; F10.20 Alcohol dependence, uncomplicated; R65.20 Severe sepsis without septic shock; K58.9 Irritable bowel syndrome, unspecified; G47.33 Obstructive sleep apnea (adult) (pediatric); Z68.36 Body mass index [BMI] 36.0-36.9, adult; Z88.5 Allergy status to narcotic agent; Z88.0 Allergy status to penicillin; Z91.040 Latex allergy status; Z90.710 Acquired absence of both cervix and uterus; Z79.899 Other long term (current) drug therapy; Z79.890 Hormone replacement therapy
CPT/HCPCS: 36415; 71045; 71275; 80053; 80202; 81003; 82550; 82728; 83690; 83735; 83880; 83930; 83935; 84100; 84300; 84484; 85025; 85379; 86140; 86769; 87449; 87633; 87635; 87899; 93005; 94760; 96365; 96367; 96372; 96375; J0456; J1100; J1650; J1956; J3370; J3475; J3480; J7030; J7050; Q9967; U0002; U0003

== ENCOUNTER 2020-06-24 14:03 | Outpatient (CLI) | payer BC ==
--- NOTE | 2020-06-24 14:29 | RAD ---
EXAM: Two views chest PROVIDED CLINICAL HISTORY: Lobar pneumonia. COMPARISON: 06/04/2020 FINDINGS: Cardiac silhouette and pulmonary vasculature are within normal limits. The parenchymal airspace opac ities seen in left midlung zone and left lung base have resolved. Minimal linear density is seen at the left lung base which could be related to either minimal atelectasis or very minimal residual area of pneumonitis. Questionable subtle groundglass opacity is seen in the right lung base which is at site of previous groundglass nodule on the prior exam. There is a linear density seen along the later al right chest which is felt to most likely be secondary to overlying skin fold related to overlying right arm. This is not thought to represent a pneumothorax. Calcified lymph node in the reg ion of the AP window is again seen. No other interval change. IMPRESSION: 1. Resolution of nodular parenchymal opacities in the left midlung zone. There is minimal linear and slight patchy density at the left lung base with questionable groundglass density at the right lung base which may represent minimal residual areas of bronchopneumonia. Additional follow-up chest x-ray is recommended in 2 weeks to ensure complete resolution. 2. Linear density lateral right chest felt to most likely be secondary to overlying skin fold.
== END 2020-06-24 14:04 | disposition home or self-care (01) ==
LOC: BICRAD 14:03
PROVIDERS: ATTEND Family Medicine
DX: J18.1 Lobar pneumonia, unspecified organism (principal); R91.8 Other nonspecific abnormal finding of lung field; J98.4 Other disorders of lung
CPT/HCPCS: 71046

== ENCOUNTER 2021-06-29 15:34 | Outpatient (CLI) | payer BC | END 2021-06-29 15:35 | disposition home or self-care (01) | LOC: BICMAMMO 15:34 | PROVIDERS: ATTEND Family Medicine | DX: Z12.31 Encounter for screening mammogram for malignant neoplasm of breast (principal); Z80.3 Family history of malignant neoplasm of breast | CPT/HCPCS: 77063; 77067 ==

== ENCOUNTER 2022-03-31 11:19 | Emergency (ER) | payer BC ==
[~2022-03-31 11:19] MED LIST: Iopamidol-370 76% 500 ML 1 ML ONE; MD-Gastroview 120 ML BOT ONE
[2022-03-31 11:55] LABS: #Eosinphils 0.1 thou/uL (0.0-0.7); #Lymphocytes 1.3 thou/uL (1.20-3.40); #Monocytes 0.8 thou/uL (0.11-0.59); %Basophils 0.6 % (0.0-1.0); %Eosinophils 0.9 % (0.0-10.0); %Lymphocytes 17.7 % (21.0-51.0); %Monocytes 11.4 % (0.0-10.0); %Neutrophils 69.5 % (42.0-75.0); Hemoglobin 11.5 g/dL (12.0-16.0); Mean Corpuscular HGB CONC 34.7 g/dL (32.0-36.0); Mean Corpuscular Hemoglobin 32.5 pg (27.0-31.0); Mean Corpuscular Volume 93.6 fL (78.0-98.0); Mean Platelet Volume 7.1 fL (7.4-10.4); Platelet Count 217 thou/uL (130-400); RBC Distribution Width 11.1 % (11.5-14.5); Red Blood Cell (RBC) Count 3.54 mill/uL (4.20-5.40); White Blood Cell (WBC) Count 7.2 thou/uL (4.8-10.8)
[2022-03-31 12:23] LABS: ALT (SGPT) 14 U/L (8-55); AST (SGOT) 18 U/L (5-34); Albumin 4.3 g/dL (3.5-5.0); Alkaline Phosphatase 61 U/L (40-110); Anion Gap 17 mmol/L (10-20); BUN (Urea Nitrogen) 9 mg/dL (7.0-18.7); Calc. Creatinine Clearance 0 mL/min (70-130); Calcium 9.5 mg/dL (7.8-10.44); Carbon Dioxide 26 mmol/L (22-29); Estimated GFR 83; Globulin 2.9 g/dL (2.4-3.5); Glucose 108 mg/dL (70-105); Lipase 25 U/L (8-78); Potassium 3.4 mmol/L (3.5-5.1); Protein, Total 7.2 g/dL (6.0-8.3)
[2022-03-31 12:29] LABS: Chloride 89 mmol/L (98-107); Sodium 129 mmol/L (136-145)
[2022-03-31] MEDS ORDERED: Ondansetron PF 4 MG/2 ML Vial IVP PRN (14:10)
[2022-03-31] MEDS ORDERED: Ketorolac Tromethamine 30 MG/ML VIAL IVP SCH ×2 (14:15→18:00)
[2022-03-31] MEDS ORDERED: Sodium Chloride 0.9% 1,000 ML IV SCH (14:15)
[2022-03-31 14:31] LABS: Bilirubin Negative (Negative); Blood, Urine Negative (Negative); Clarity Clear (Clear); Glucose, Urine (Dipstick) Normal (Negative); Ketone, Urine Negative (Negative); Leukocyte Negative Leu/uL (Negative); Nitrite Negative (Negative); Protein, Urine (Dipstick) Negative (Neg-Trace); Specific Gravity, Urine 1.023 (1.002-1.036); Urobilinogen Normal mg/dL (Less than 2); pH, Urine 6.5 (5.0-9.0)
[2022-03-31 14:37] LABS: Pregnancy Test - Urine (BHCG) Negative (Negative); Pregu Control Background? CLEAR/WHITE (CLR/WHITE); Pregu Control Bar Appear? YES (CONTROL BAR); Specific Gravity 1.023 (1.002-1.036)
[2022-03-31] MEDS ORDERED: Scopolamine 1.5 mg/72 hour Patch TD SCH (15:00)
[2022-03-31 15:48] LABS: SARS-CoV-2 NAA Rapid Test Not Detected (NotDetected)
[2022-03-31] MEDS ORDERED: Rocuronium Bromide 10 MG/ML (10ML VIAL) ONE (18:00)
[2022-03-31] MEDS ORDERED: Ondansetron PF 4 MG/2 ML Vial ONE (18:00)
[2022-03-31] MEDS ORDERED: PROPOFOL 200 MG/20 ML VIAL ONE (18:00)
[2022-03-31] MEDS ORDERED: Succinylcholine 200 MG/10 ml SYRINGE FS ONE (18:00)
[2022-03-31] MEDS ORDERED: Lidocaine 1% MPF 2 ML VIAL ONE (18:00)
[2022-03-31] MEDS ORDERED: Dexamethasone 20 MG/5 ML VIAL ONE (18:00)
[2022-03-31] MEDS ORDERED: Bupivacaine HCl 0.5%/Epinephrine 1:200,000/PF 30 ml Vial ONE (18:10)
[2022-03-31] MEDS ORDERED: fentaNYL Citrate/PF 100 MCG/2 ML SYRINGE ONE (18:34)
[2022-03-31] MEDS ORDERED: Midazolam HCl 2 mg/2 ml Vial ONE (18:34)
[2022-03-31] MEDS ORDERED: SUGAMMADEX SODIUM 200 MG/2 ML VIAL ONE (19:21)
[2022-03-31] MEDS ORDERED: HYDROcodone/Acetaminophen 5/325 mg Tablet ONE (20:22)
[2022-03-31] MEDS ORDERED: metroNIDAZOLE 500 MG in Premix Bag 1 BAG IVPB SCH (22:00)
== END 2022-03-31 17:12 | disposition admitted as inpatient to this hospital (09) ==
LOC: ERS 11:19
PROC: 0DTJ4ZZ Resection of Appendix, Percutaneous Endoscopic Approach (ICD-10-PCS; principal; 2022-03-31)
DX: K35.80 Unspecified acute appendicitis (principal); N73.9 Female pelvic inflammatory disease, unspecified; K38.8 Other specified diseases of appendix; I10 Essential (primary) hypertension; F31.9 Bipolar disorder, unspecified; F10.20 Alcohol dependence, uncomplicated; Z79.899 Other long term (current) drug therapy; Z88.0 Allergy status to penicillin; Z91.040 Latex allergy status; Z20.822 Contact with and (suspected) exposure to COVID-19
CPT/HCPCS: 36415; 74177; 80053; 81003; 81025; 83690; 85025; 88304; 96365; A4649; C1713; J1100; J1956; J2250; J2405; J2704; Q9963; Q9967; U0002